=== PATIENT | male | born 2000 | race Caucasian/White ===

== ENCOUNTER 2018-07-14 11:33 | Emergency (ER) | payer OTHER ==
[2018-07-14 11:54] VITALS: BP 109/90; PULSE 76; TEMP 98.5; BMI 29.6
--- NOTE | 2018-07-14 12:57 | PDOC ---
History of Present Illness - General Chief Complaint: Cold Symptoms Stated Complaint: DEHYDRATION / VOMMIT Time Seen by Provider: 07/14/18 12:41 - History of Present Illness Initial Comments: 07/14/18 12:55 17-year-old male without comorbidities presents for evaluation of nausea vomiting and chills 3 days Past History - Past Medical History Allergies/Adverse Reactions: Allergies Allergy/AdvReac Type Severity Reaction Status Date / Time No Known Allergies Allergy Verified 12/31/17 13:38 Home Medications: Ambulatory Orders NK [No Known Home Medication] 07/14/18 Anemia: No Asthma: No Cancer: No Cardiac Disorders: No CVA: No COPD: No CHF: No Dementia: No Diabetes: No GI Disorders: No Disorders: No HTN: No Hypercholesterolemia: No Kidney Stones: No Liver Disease: No Seizures: No Thyroid Disease: No Other medical history: anxiety - Surgical History Abdominal Surgery: No Appendectomy: No Cardiac Surgery: No Cholecystectomy: No Lung Surgery: No Neurologic Surgery: No Orthopedic Surgery: No - Immunization History Immunization Up to Date: Yes - Suicide/Smoking/Psychosocial Hx Smoking Status: No Smoking History: Current every day smoker Have you smoked in the past 12 months: No Number of Cigarettes Smoked Daily: 0 Information on smoking cessation initiated: No Hx Alcohol Use: No Drug/Substance Use Hx: Yes ([facility]) Substance Use Type: Marijuana Hx Substance Use Treatment: Yes (This is patient's first admission to rehab) Review of Systems - Review of Systems Constitutional: Yes: Chills, Malaise, Night Sweats. No: Fever ABD/GI: Yes: Nausea, Vomiting *Physical Exam - Vital Signs Last Vital Signs Temp Pulse Resp BP Pulse Ox 98.5 F 76 18 109/90 98 07/14/18 11:50 07/14/18 11:50 07/14/18 11:50 07/14/18 11:50 07/14/18 11:50 - Physical Exam Comments: 07/14/18 12:55 HEAD: NC/AT EYES: Conjuntiva clear Ears: Canals and TM's normal NOSE: No d/c THROAT: Moist mucous membrances, oral pharanx clear, uvula midline NECK: Supple without adenopathy CARDIAC: S1 S2 LUNGS: CTA Full and Equal breath sounds ABDOMEN: Soft NT ND MS: Full ROM in all joints without edema NEUROLOGIC: No gross sensory or motor deficits, NVID SKIN: Normal color and temperature no lesions or rashes Moderate Sedation - Procedure Monitoring Vital Signs: Procedure Monitoring Vital Signs Temperature 98.5 F 07/14/18 11:50 Pulse Rate 76 07/14/18 11:50 Respiratory Rate 18 07/14/18 11:50 Blood Pressure 109/90 07/14/18 11:50 O2 Sat by Pulse Oximetry (%) 98 07/14/18 11:50 *DC/Admit/Observation/Transfer Diagnosis at time of Disposition: Gastroenteritis - Discharge Dispostion Disposition: HOME Condition at time of disposition: Stable Decision to Admit order: No - Referrals Referrals: Marky Greene MD [Primary Care Provider] - - Patient Instructions Printed Discharge Instructions: DI for Viral Gastroenteritis -- Adult Additional Instructions: He may take Tylenol for body aches as well as chills. Avoid Motrin as this may irritate her stomach. Return to the emergency room should symptoms worsen or go unresolved and follow-up with your primary care physician in one to 2 days for further evaluation and treatment options. Small sips of Pedialyte throughout stable help keep dehydrated. - Post Discharge Activity
== END 2018-07-14 13:00 | disposition home or self-care (01) ==
LOC: JERFT 11:33
DX: K52.9 Noninfective gastroenteritis and colitis, unspecified (principal); F17.210 Nicotine dependence, cigarettes, uncomplicated
CPT/HCPCS: 99281-25

== ENCOUNTER 2018-07-15 07:45 | Emergency (ER) | payer OTHER ==
[2018-07-15 07:51] VITALS: TEMP 98.9; BMI 29.6
--- NOTE | 2018-07-15 07:52 | PDOC ---
History of Present Illness - General Chief Complaint: Nausea/Vomiting Stated Complaint: NAUSEA,VOMITING Time Seen by Provider: 07/15/18 07:51 - History of Present Illness Initial Comments: 07/15/18 08:01 Mr. Wilson is a 17 yo male w/ no significant pmh who presents for evaluation of 3-4 day history of nausea, vomiting, body aches and 1 episode of diarrhea. Patient was evaluated in same ED yesterday and told he has a viral illness. Returns today as he has been unable to keep anything down this morning. Patient is unsure if he got the flu shot this year or not. The patient denies chest pain, shortness of breath, headache and dizziness. Denies dysuria, frequency, urgency and hematuria. Past History - Past Medical History Allergies/Adverse Reactions: Allergies Allergy/AdvReac Type Severity Reaction Status Date / Time No Known Allergies Allergy Verified 12/31/17 13:38 Home Medications: Ambulatory Orders Ondansetron HCl [Zofran] 4 mg PO TID #9 tablet 07/15/18 Anemia: No Asthma: No Cancer: No Cardiac Disorders: No CVA: No COPD: No CHF: No Dementia: No Diabetes: No GI Disorders: No Disorders: No HTN: No Hypercholesterolemia: No Kidney Stones: No Liver Disease: No Seizures: No Thyroid Disease: No - Surgical History Abdominal Surgery: No Appendectomy: No Cardiac Surgery: No Cholecystectomy: No Lung Surgery: No Neurologic Surgery: No Orthopedic Surgery: No - Immunization History Immunization Up to Date: Yes - Suicide/Smoking/Psychosocial Hx Smoking Status: No Smoking History: Current some day smoker Have you smoked in the past 12 months: No Number of Cigarettes Smoked Daily: 0 Information on smoking cessation initiated: No Hx Alcohol Use: No Drug/Substance Use Hx: Yes ([facility]) Substance Use Type: Marijuana Hx Substance Use Treatment: Yes (This is patient's first admission to rehab) Review of Systems - Review of Systems Comments:: 07/15/18 08:06 GENERAL/CONSTITUTIONAL: +Subjective fever/chills for 3 days. No weakness. HEAD, EYES, EARS, NOSE AND THROAT: No change in vision. No ear pain or discharge. No sore throat. CARDIOVASCULAR: No chest pain or shortness of breath RESPIRATORY: +Nonproductive cough. No wheezing, or hemoptysis. GASTROINTESTINAL: +N/V/D as described. GENITOURINARY: No dysuria, frequency, or change in urination. MUSCULOSKELETAL: +Body aches x3 days SKIN: No rash NEUROLOGIC: No headache, vertigo, loss of consciousness, or change in strength/ sensation. ENDOCRINE: No increased thirst. No abnormal weight change HEMATOLOGIC/LYMPHATIC: No anemia, easy bleeding, or history of blood clots. ALLERGIC/IMMUNOLOGIC: No hives or skin allergy. *Physical Exam - Vital Signs Last Vital Signs Temp Pulse Resp BP Pulse Ox 98.9 F 100 H 18 116/61 100 07/15/18 07:48 07/15/18 07:48 07/15/18 07:48 07/15/18 07:48 07/15/18 07:48 - Physical Exam Comments: 07/15/18 08:08 GENERAL: Awake, alert, and fully oriented, in no acute distress HEAD: No signs of trauma, normocephalic, atraumatic EYES: PERRLA, EOMI, sclera anicteric, conjunctiva clear ENT: Auricles normal inspection, hearing grossly normal, nares patent, oropharynx clear without exudates. Moist mucosa NECK: Normal ROM, supple, no lymphadenopathy, JVD, or masses LUNGS: No distress, speaks full sentences, clear to auscultation bilaterally HEART: Regular rate and rhythm, normal S1 and S2, no murmurs, rubs or gallops, peripheral pulses normal and equal bilaterally. ABDOMEN: Soft, nontender, normoactive bowel sounds. No guarding, no rebound. No masses EXTREMITIES: Normal inspection, Normal range of motion, no edema. No clubbing or cyanosis. NEUROLOGICAL: Cranial nerves II through XII grossly intact. Normal speech, normal gait, no focal sensorimotor deficits SKIN: Warm, Dry, normal turgor, no rashes or lesions noted. Moderate Sedation - Procedure Monitoring Vital Signs: Procedure Monitoring Vital Signs Temperature 98.9 F 07/15/18 07:48 Pulse Rate 100 H 07/15/18 07:48 Respiratory Rate 18 07/15/18 07:48 Blood Pressure 116/61 07/15/18 07:48 O2 Sat by Pulse Oximetry (%) 100 07/15/18 07:48 ED Treatment Course - LABORATORY CBC & Chemistry Diagram: 07/15/18 08:28 07/15/18 08:28 Medical Decision Making - Medical Decision Making 07/15/18 09:15 Mr. Wilson is a 17 yo male w/ pmh as described who presents for evaluation of symptoms concerning for viral GI illness vs. influenza. Patient evaluated with corresponding labs as below. Upon patient request, HIV/GC/Chlamydia ordered as well. 07/15/18 10:31 Patient labs grossly wnl as below. Flu negative. Suspect viral etiology of symptoms. HIV negative. Communicated to patient. Patient will be contacted with GC/Chlamydia results. No concern for acute process at this time. Discharging to home for outpatient follow-up. Laboratory Results - last 24 hr 07/15/18 07/15/18 07/15/18 08:28 08:28 08:28 WBC 6.5 RBC 5.43 Hgb 15.0 Hct 44.9 MCV 82.7 MCH 27.6 MCHC 33.3 RDW 13.8 Plt Count 237 MPV 8.6 Absolute Neuts (auto) 5.1 Neutrophils % 77.8 D Lymphocytes % 15.6 D Monocytes % 5.9 Eosinophils % 0.4 Basophils % 0.3 Nucleated RBC % 0 Sodium 138 Potassium 3.8 Chloride 103 Carbon Dioxide 27 Anion Gap 8 BUN 16 Creatinine 1.0 Creat Clearance w eGFR > 60 Random Glucose 80 Calcium 9.4 Total Bilirubin 0.8 AST 25 ALT 27 Alkaline Phosphatase 101 Total Protein 8.6 H Albumin 5.0 HIV 1&2 Antibody Screen HIV P24 Antigen Influenza A (Rapid) Negative Influenza B (Rapid) Negative 07/15/18 09:18 WBC RBC Hgb Hct MCV MCH MCHC RDW Plt Count MPV Absolute Neuts (auto) Neutrophils % Lymphocytes % Monocytes % Eosinophils % Basophils % Nucleated RBC % Sodium Potassium Chloride Carbon Dioxide Anion Gap BUN Creatinine Creat Clearance w eGFR Random Glucose Calcium Total Bilirubin AST ALT Alkaline Phosphatase Total Protein Albumin HIV 1&2 Antibody Screen Negative HIV P24 Antigen Negative Influenza A (Rapid) Influenza B (Rapid) *DC/Admit/Observation/Transfer Diagnosis at time of Disposition: Viral illness - Discharge Dispostion Disposition: HOME - Referrals Referrals: Chino Vazquez MD [Non Staff, Medical] - - Patient Instructions Printed Discharge Instructions: DI for Viral Syndrome Additional Instructions: You were evaluated today in the ER for your symptoms. No concerning findings were found at this time. We sent a prescription to your pharmacy for anti nausea medication. Please take all medications as written. You may take over the counter motrin or tylenol per package instructions as needed for pain control. Follow-up with primary care provider in 2-3 days for further evaluation. Return to ED if any fever, chills, pain, or other concerning symptoms. - Post Discharge Activity Forms/Work/School Notes: Back to Work
[2018-07-15] MEDS ORDERED: SODIUM CHLORIDE 1,000 ML IV STA (07:59)
[2018-07-15] MEDS ORDERED: ACETAMINOPHEN 500 MG TABLET (FP) PO ONE (08:00)
[2018-07-15] MEDS ORDERED: ONDANSETRON 4 MG/2 ML VIAL IVPB ONE (08:00)
[2018-07-15] MEDS ORDERED: ONDANSETRON 4 MG/2 ML VIAL ONE (08:06)
[2018-07-15] MEDS ORDERED: ACETAMINOPHEN 325 MG TABLET (FP) ONE (08:06)
--- NOTE | 2018-07-15 08:09 | PDOC ---
Attending Attestation - Resident Resident Name: Thony Fields - ED Attending Attestation I have performed the following: I have examined & evaluated the patient, The case was reviewed & discussed with the resident, I agree w/resident's findings & plan, Exceptions are as noted - HPI HPI: 07/15/18 09:24 Reviewed residents HPI - Physicial Exam PE: 07/15/18 09:24 Reviewed Residents PE - Medical Decision Making 07/15/18 09:25 17 years old presents to the emergency department with three-day history of fever chills malaise and body aches. Over the last day, nausea vomiting nonbilious nonbloody difficulty tolerating fluids Here in the emergency department he had no abdominal discomfort on his abdominal examination He was given Tylenol fluids Zofran he is now tolerating fluids but also requested to have HIV checked History examination consistent with influenza-like illness not in the window for treatment with Tamiflu no other high risk factors. Findings, the need for follow-up and strict return instructions discussed with patient.
[2018-07-15 08:39] LABS: BASO % 0.3 % (0-2.0); EOS % 0.4 % (0-4.5); HEMATOCRIT 44.9 % (35.4-49); LYMPH % 15.6 % (8-40); MCH 27.6 pg (25.7-33.7); MCHC 33.3 g/dl (32.0-35.9); MEAN CELL VOLUME 82.7 fl (80-96); MEAN PLT VOLUME 8.6 fl (7.5-11.1); MONO % 5.9 % (3.8-10.2); NEUT % 77.8 % (42.8-82.8); PLATELET COUNT 237 K/MM3 (134-434); RBC 5.43 M/mm3 (4.00-5.60); RDW 13.8 % (11.9-15.9); WHITE BLOOD COUNT 6.5 K/mm3 (4.0-10.0)
[2018-07-15 09:38] LABS: ALK PHOS 101 U/L (45-117); ANION GAP 8 MMOL/L (8-16); BILIRUBIN,TOTAL 0.8 mg/dL (0.2-1); BLOOD UREA NITROGEN 16 mg/dL (7-18); CALCIUM 9.4 mg/dL (8.5-10.1); CHLORIDE 103 mmol/L (98-107); CO2 27 mmol/L (21-32); GLUCOSE,RANDOM 80 mg/dL (74-106); POTASSIUM 3.8 mmol/L (3.5-5.1); SGOT/AST 25 U/L (15-37); SGPT/ALT 27 U/L (13-61); SODIUM 138 mmol/L (136-145); TOT PROT 8.6 g/dl (6.4-8.2)
[2018-07-15 11:00] VITALS: BP 117/60; PULSE 60
== END 2018-07-15 11:13 | disposition home or self-care (01) ==
LOC: SUPCPDRO 07:45 → JER 07:45
PROC: 3E033GC Introduction of Other Therapeutic Substance into Peripheral Vein, Percutaneous Approach (ICD-10-PCS; principal; 2018-07-15)
PROC: 3E0337Z Introduction of Electrolytic and Water Balance Substance into Peripheral Vein, Percutaneous Approach (ICD-10-PCS; 2018-07-15)
DX: B34.9 Viral infection, unspecified (principal)
CPT/HCPCS: 36415; 80053; 85025; 87389; 87491; 87591; 87804; 99283-25; J7030

== ENCOUNTER 2022-06-30 15:32 | Emergency (ER) | payer OTHER ==
[2022-06-30 15:52] VITALS: BP 149/91; PULSE 118; RESP 17; TEMP 98.2; BMI 31.9
== END 2022-06-30 18:18 | disposition home or self-care (01) ==
LOC: JERFT 15:32
DX: F12.90 Cannabis use, unspecified, uncomplicated (principal)
CPT/HCPCS: 99282-25

== ENCOUNTER 2024-01-29 12:45 | Emergency (ER) | payer OTHER ==
[2024-01-29 12:50] VITALS: BP 141/88; PULSE 88; RESP 18; TEMP 98.4; BMI 31.3
== END 2024-01-29 13:37 | disposition home or self-care (01) ==
LOC: JERFT 12:45
DX: L73.9 Follicular disorder, unspecified (principal); R22.0 Localized swelling, mass and lump, head
CPT/HCPCS: 99283-25